=== PATIENT | male | born 1940 | race Two or more races ===

== ENCOUNTER 2019-08-19 16:51 | Inpatient (IN) | payer MEDICARE, OTHER ==
[~2019-08-19] VITALS: Ht 165.1 cm; Wt 71.7 kg
[2019-08-19 18:10] VITALS: BP 160/91
[2019-08-19] MEDS ORDERED: ACETAMINOPHEN 325 MG TABLET PO PRN (19:00)
[2019-08-19] MEDS: HEPARIN SODIUM,PORCINE 5,000 UNITS/ML VIAL SQ SCH (21:13)
[2019-08-19] MEDS: ATORVASTATIN CALCIUM 10 MG TABLET PO SCH (21:13)
[2019-08-19] MEDS: DOCUSATE SODIUM 250 MG CAPSULE PO SCH (21:13)
[2019-08-19] MEDS: SENNA 187 MG TABLET PO SCH (21:13)
[2019-08-19 21:50] VITALS: BP 148/87
[2019-08-19 23:16] VITALS: BP 143/86
[2019-08-20] VITALS: BP 143/86
[2019-08-20 07:10] VITALS: BP 128/72
[2019-08-20 07:18] LABS: BASOPHILS % (AUTO) 0.7 % (0.0-2.0); EOSINOPHILS % (AUTO) 1.6 % (1.0-6.0); HEMATOCRIT 39.7 % (41-53); LYMPHOCYTES # (AUTO) 2.2 K/uL (1.0-4.8); LYMPHOCYTES % (AUTO) 21.7 % (22.0-44.0); MEAN CORPUSCULAR HEMOGLOBIN 32.8 pg (26.0-34.0); MEAN CORPUSCULAR HGB CONC 35.4 G/dL (31.0-37.0); MEAN CORPUSCULAR VOLUME 93 fL (80-100); MONOCYTES % (AUTO) 9.7 % (2.0-9.0); NEUTROPHILS # (AUTO) 6.8 K/uL (1.8-7.7); NEUTROPHILS % (AUTO) 66.3 % (40.0-70.0); PLATELET COUNT (AUTO) 257 K/uL (150-450); RED BLOOD CELL COUNT(AUTO) 4.28 MIL/uL (4.50-5.90); RED CELL DISTRIBUTION WIDTH 12.4 % (11.5-14.5)
[2019-08-20 08:09] LABS: ALBUMIN 3.2 g/dL (3.4-5.0); BILIRUBIN,TOTAL 0.6 mg/dL (0.1-1.0); CALCIUM, TOTAL 8.7 mg/dL (8.8-10.5); CREATININE 1.3 mg/dL (0.60-1.30); POTASSIUM 3.9 mmol/L (3.5-5.1)
[2019-08-20] MEDS: HEPARIN SODIUM,PORCINE 5,000 UNITS/ML VIAL SQ SCH ×2 (08:23→21:33)
[2019-08-20] MEDS: FLUoxetine HCL 20 MG CAPSULE PO SCH (08:23)
[2019-08-20] MEDS: ASPIRIN 325 MG TABLET PO SCH (08:23)
[2019-08-20 08:29] LABS: TOTAL PROTEIN, SERUM 6.5 g/dL (6.4-8.2)
[2019-08-20 16:20] VITALS: BP 148/78
[2019-08-20] MEDS: DOCUSATE SODIUM 250 MG CAPSULE PO SCH (21:32)
[2019-08-20] MEDS: SENNA 187 MG TABLET PO SCH (21:33)
[2019-08-20] MEDS: ATORVASTATIN CALCIUM 10 MG TABLET PO SCH (21:33)
[2019-08-21] VITALS: BP 149/79
[2019-08-21] MEDS: HEPARIN SODIUM,PORCINE 5,000 UNITS/ML VIAL SQ SCH ×2 (09:10→20:18)
[2019-08-21] MEDS: FLUoxetine HCL 20 MG CAPSULE PO SCH (09:10)
[2019-08-21] MEDS: ASPIRIN 325 MG TABLET PO SCH (09:10)
[2019-08-21 10:17] VITALS: BP 127/73
[2019-08-21 15:50] VITALS: BP 140/85
[2019-08-21] MEDS: ATORVASTATIN CALCIUM 10 MG TABLET PO SCH (20:18)
[2019-08-21] MEDS: DOCUSATE SODIUM 250 MG CAPSULE PO SCH (21:00)
[2019-08-21] MEDS: SENNA 187 MG TABLET PO SCH (21:00)
[2019-08-22] VITALS: BP 145/83
[2019-08-22 08:08] VITALS: BP 143/83
[2019-08-22] MEDS: ASPIRIN 325 MG TABLET PO SCH (08:30)
[2019-08-22] MEDS: HEPARIN SODIUM,PORCINE 5,000 UNITS/ML VIAL SQ SCH ×2 (08:30→20:49)
[2019-08-22] MEDS: FLUoxetine HCL 20 MG CAPSULE PO SCH (08:30)
[2019-08-22 15:00] VITALS: BP 154/75
[2019-08-22] MEDS: DOCUSATE SODIUM 250 MG CAPSULE PO SCH (20:48)
[2019-08-22] MEDS: SENNA 187 MG TABLET PO SCH (20:48)
[2019-08-22] MEDS: ATORVASTATIN CALCIUM 10 MG TABLET PO SCH (20:48)
[2019-08-23] VITALS: BP 141/77
[2019-08-23 07:15] VITALS: BP 150/69
[2019-08-23] MEDS: HEPARIN SODIUM,PORCINE 5,000 UNITS/ML VIAL SQ SCH ×2 (08:29→20:41)
[2019-08-23] MEDS: ASPIRIN 325 MG TABLET PO SCH (08:29)
[2019-08-23] MEDS: FLUoxetine HCL 20 MG CAPSULE PO SCH (08:29)
[2019-08-23 15:30] VITALS: BP 183/89
[2019-08-23] MEDS: ATORVASTATIN CALCIUM 10 MG TABLET PO SCH (20:41)
[2019-08-23] MEDS: MELATONIN 3 MG TABLET PO PRN (20:41)
[2019-08-23] MEDS: SENNA 187 MG TABLET PO SCH (20:41)
[2019-08-23] MEDS: DOCUSATE SODIUM 250 MG CAPSULE PO SCH (20:41)
[2019-08-24] VITALS: BP 153/84
[2019-08-24] MEDS: FLUoxetine HCL 20 MG CAPSULE PO SCH (08:13)
[2019-08-24] MEDS: HEPARIN SODIUM,PORCINE 5,000 UNITS/ML VIAL SQ SCH ×2 (08:13→21:03)
[2019-08-24] MEDS: ASPIRIN 325 MG TABLET PO SCH (08:13)
[2019-08-24 08:33] VITALS: BP 134/75
[2019-08-24 16:00] VITALS: BP 145/81
[2019-08-24] MEDS: DEXTRAN 70 0.1%/HYPROMELL 0.3% 0.9 ML OPHTHALMIC SOLUTION [PF] OU SCH (20:59)
[2019-08-24] MEDS: ATORVASTATIN CALCIUM 10 MG TABLET PO SCH (21:01)
[2019-08-24] MEDS: SENNA 187 MG TABLET PO SCH (21:01)
[2019-08-24] MEDS: DOCUSATE SODIUM 250 MG CAPSULE PO SCH (21:01)
[2019-08-25 00:37] VITALS: BP 150/86
[2019-08-25 07:15] VITALS: BP 137/88
[2019-08-25] MEDS: DEXTRAN 70 0.1%/HYPROMELL 0.3% 0.9 ML OPHTHALMIC SOLUTION [PF] OU SCH ×3 (07:59→20:23)
[2019-08-25] MEDS: ASPIRIN 325 MG TABLET PO SCH (07:59)
[2019-08-25] MEDS: HEPARIN SODIUM,PORCINE 5,000 UNITS/ML VIAL SQ SCH ×2 (07:59→20:24)
[2019-08-25] MEDS: FLUoxetine HCL 20 MG CAPSULE PO SCH (07:59)
[2019-08-25 13:10] VITALS: BP 152/82
[2019-08-25] MEDS: AmLODIPine BESYLATE 10 MG TABLET PO SCH (13:29)
[2019-08-25] MEDS: CHOLECALCIFEROL (VIT D3) 5,000 UNITS CAPSULE PO SCH (13:29)
[2019-08-25] MEDS: LISINOPRIL 20 MG TABLET PO SCH (13:30)
[2019-08-25 15:30] VITALS: BP 136/84
[2019-08-25] MEDS: ATORVASTATIN CALCIUM 10 MG TABLET PO SCH (20:23)
[2019-08-25] MEDS: DOCUSATE SODIUM 250 MG CAPSULE PO SCH (20:23)
[2019-08-25] MEDS: SENNA 187 MG TABLET PO SCH (20:24)
[2019-08-25] MEDS ORDERED: INSULIN GLARGINE,HUM.REC.ANLOG 100 UNITS/ML SQ SCH (21:00)
[2019-08-26] VITALS: BP 146/71
[2019-08-26 07:00] VITALS: BP 101/59
[2019-08-26 08:09] VITALS: BP 81/55
[2019-08-26] MEDS: FLUoxetine HCL 20 MG CAPSULE PO SCH (08:12)
[2019-08-26] MEDS: CHOLECALCIFEROL (VIT D3) 5,000 UNITS CAPSULE PO SCH (08:12)
[2019-08-26] MEDS: ASPIRIN 325 MG TABLET PO SCH (08:12)
[2019-08-26] MEDS: HEPARIN SODIUM,PORCINE 5,000 UNITS/ML VIAL SQ SCH ×2 (08:15→20:44)
[2019-08-26] MEDS: DEXTRAN 70 0.1%/HYPROMELL 0.3% 0.9 ML OPHTHALMIC SOLUTION [PF] OU SCH ×3 (08:15→20:44)
[2019-08-26] MEDS: LISINOPRIL 20 MG TABLET PO SCH (08:15)
[2019-08-26] MEDS: AmLODIPine BESYLATE 10 MG TABLET PO SCH (08:15)
[2019-08-26 09:28] VITALS: BP 86/52
[2019-08-26 15:30] VITALS: BP 93/59
[2019-08-26] MEDS: ATORVASTATIN CALCIUM 10 MG TABLET PO SCH (20:44)
[2019-08-26] MEDS: SENNA 187 MG TABLET PO SCH (20:44)
[2019-08-26] MEDS: DOCUSATE SODIUM 250 MG CAPSULE PO SCH (20:44)
[2019-08-26 23:00] VITALS: BP 101/58
[2019-08-27 03:30] VITALS: BP 135/77
[2019-08-27 05:06] VITALS: BP 101/66
[2019-08-27 07:15] VITALS: BP 117/65
[2019-08-27 08:55] VITALS: BP 106/40
[2019-08-27] MEDS: HEPARIN SODIUM,PORCINE 5,000 UNITS/ML VIAL SQ SCH (09:00)
[2019-08-27] MEDS: ASPIRIN 325 MG TABLET PO SCH (09:00)
[2019-08-27] MEDS: AmLODIPine BESYLATE 10 MG TABLET PO SCH (09:00)
[2019-08-27] MEDS: LISINOPRIL 20 MG TABLET PO SCH (09:00)
[2019-08-27] MEDS: DEXTRAN 70 0.1%/HYPROMELL 0.3% 0.9 ML OPHTHALMIC SOLUTION [PF] OU SCH ×3 (09:07→20:18)
[2019-08-27] MEDS: CHOLECALCIFEROL (VIT D3) 5,000 UNITS CAPSULE PO SCH (09:07)
[2019-08-27] MEDS: FLUoxetine HCL 20 MG CAPSULE PO SCH (09:07)
[2019-08-27] MEDS ORDERED: ONDANSETRON HCL 4 MG TABLET PO PRN (09:30)
[2019-08-27] MEDS ORDERED: MAG HYDROX/AL HYDROX/SIMETH 30 ML SUSP UDCUP PO PRN (09:30)
[2019-08-27] MEDS ORDERED: PANTOPRAZOLE SODIUM 40 MG/VIAL IVP SCH (09:45)
[2019-08-27 09:59] LABS: BASOPHILS % (AUTO) 0.2 % (0.0-2.0); EOSINOPHILS % (AUTO) 0.1 % (1.0-6.0); HEMATOCRIT 29.5 % (41-53); LYMPHOCYTES # (AUTO) 1.1 K/uL (1.0-4.8); LYMPHOCYTES % (AUTO) 7.7 % (22.0-44.0); MEAN CORPUSCULAR HEMOGLOBIN 32.1 pg (26.0-34.0); MEAN CORPUSCULAR HGB CONC 34.1 G/dL (31.0-37.0); MEAN CORPUSCULAR VOLUME 94 fL (80-100); MONOCYTES % (AUTO) 6.9 % (2.0-9.0); NEUTROPHILS # (AUTO) 12.7 K/uL (1.8-7.7); NEUTROPHILS % (AUTO) 85.1 % (40.0-70.0); PLATELET COUNT (AUTO) 310 K/uL (150-450); RED BLOOD CELL COUNT(AUTO) 3.13 MIL/uL (4.50-5.90); RED CELL DISTRIBUTION WIDTH 12.8 % (11.5-14.5)
[2019-08-27] MEDS: SODIUM CHLORIDE 0.9% 1,000 ML IV SCH ×2 (10:59→20:17)
[2019-08-27] MEDS ORDERED: SODIUM CHLORIDE 0.9% 0 ML ONE (14:18)
[2019-08-27] MEDS ORDERED: PANTOPRAZOLE SODIUM 40 MG/VIAL IVP ONE (15:00)
[2019-08-27 15:45] VITALS: BP 139/84
[2019-08-27] MEDS: PANTOPRAZOLE SODIUM 80 MG in SODIUM CHLORIDE 0.9% 100 ML IV SCH (16:11)
[2019-08-27] MEDS: 0.9% SODIUM CHLORIDE 10 ML SYRINGE IVP SCH (16:12)
[2019-08-27 17:29] LABS: HEMATOCRIT 27.6 % (41-53); HEMOGLOBIN 9.3 g/dL (13.5-17.5)
[2019-08-27 17:48] LABS: INR 1.1 (0.9-1.1)
[2019-08-27 17:50] LABS: ALBUMIN 3.1 g/dL (3.4-5.0); BILIRUBIN,TOTAL 0.3 mg/dL (0.1-1.0); CALCIUM, TOTAL 8.4 mg/dL (8.8-10.5); CREATININE 1.62 mg/dL (0.60-1.30); POTASSIUM 4.7 mmol/L (3.5-5.1); TOTAL PROTEIN, SERUM 6.1 g/dL (6.4-8.2)
[2019-08-27] MEDS: ATORVASTATIN CALCIUM 10 MG TABLET PO SCH (20:18)
[2019-08-27] MEDS: DOCUSATE SODIUM 250 MG CAPSULE PO SCH (20:18)
[2019-08-27] MEDS: SENNA 187 MG TABLET PO SCH (20:18)
[2019-08-27 23:40] LABS: HEMATOCRIT 26.1 % (41-53); HEMOGLOBIN 9.1 g/dL (13.5-17.5)
[2019-08-27 23:44] VITALS: BP 134/78
[2019-08-27 23:51] LABS: CALCIUM, TOTAL 8.7 mg/dL (8.8-10.5); CREATININE 1.64 mg/dL (0.60-1.30); POTASSIUM 4.4 mmol/L (3.5-5.1)
[2019-08-28] MEDS: 0.9% SODIUM CHLORIDE 10 ML SYRINGE IVP SCH ×3 (02:01→16:38)
[2019-08-28] MEDS: PANTOPRAZOLE SODIUM 80 MG in SODIUM CHLORIDE 0.9% 100 ML IV SCH ×3 (02:02→21:24)
[2019-08-28 06:14] LABS: BASOPHILS % (AUTO) 0.6 % (0.0-2.0); EOSINOPHILS % (AUTO) 0.4 % (1.0-6.0); HEMATOCRIT 23.7 % (41-53); HEMOGLOBIN 8.2 g/dL (13.5-17.5); LYMPHOCYTES # (AUTO) 1.9 K/uL (1.0-4.8); LYMPHOCYTES % (AUTO) 18.7 % (22.0-44.0); MEAN CORPUSCULAR HEMOGLOBIN 32.4 pg (26.0-34.0); MEAN CORPUSCULAR HGB CONC 34.7 G/dL (31.0-37.0); MEAN CORPUSCULAR VOLUME 93 fL (80-100); MONOCYTES # (AUTO) 0.8 K/uL (0.1-1.0); MONOCYTES % (AUTO) 8.1 % (2.0-9.0); NEUTROPHILS # (AUTO) 7.3 K/uL (1.8-7.7); NEUTROPHILS % (AUTO) 72.2 % (40.0-70.0); PLATELET COUNT (AUTO) 266 K/uL (150-450); RED BLOOD CELL COUNT(AUTO) 2.54 MIL/uL (4.50-5.90); RED CELL DISTRIBUTION WIDTH 12.6 % (11.5-14.5)
[2019-08-28 06:33] LABS: ALBUMIN 2.7 g/dL (3.4-5.0); BILIRUBIN,TOTAL 0.3 mg/dL (0.1-1.0); CREATININE 1.44 mg/dL (0.60-1.30); POTASSIUM 4.3 mmol/L (3.5-5.1); TOTAL PROTEIN, SERUM 5.6 g/dL (6.4-8.2)
[2019-08-28] MEDS ORDERED: PANTOPRAZOLE SODIUM 40 MG DR TABLET PO SCH (07:00)
[2019-08-28 07:59] VITALS: BP 125/68
[2019-08-28 08:50] LABS: H. PYLORI ANTIBODY IGG 4.74 (0.00-0.79)
[2019-08-28] MEDS: CHOLECALCIFEROL (VIT D3) 5,000 UNITS CAPSULE PO SCH (09:04)
[2019-08-28] MEDS: FLUoxetine HCL 20 MG CAPSULE PO SCH (09:04)
[2019-08-28] MEDS: DEXTRAN 70 0.1%/HYPROMELL 0.3% 0.9 ML OPHTHALMIC SOLUTION [PF] OU SCH ×3 (09:04→21:25)
[2019-08-28] MEDS: SODIUM CHLORIDE 0.9% 1,000 ML IV SCH ×2 (12:07→16:38)
[2019-08-28 15:00] VITALS: BP 137/57
[2019-08-28] MEDS: DOCUSATE SODIUM 250 MG CAPSULE PO SCH (21:25)
[2019-08-28] MEDS: ATORVASTATIN CALCIUM 10 MG TABLET PO SCH (21:25)
[2019-08-28] MEDS: SENNA 187 MG TABLET PO SCH (21:25)
[2019-08-29] VITALS: BP 140/77
[2019-08-29] MEDS: PANTOPRAZOLE SODIUM 80 MG in SODIUM CHLORIDE 0.9% 100 ML IV SCH (06:57)
[2019-08-29] MEDS: SODIUM CHLORIDE 0.9% 1,000 ML IV SCH ×3 (07:49→20:29)
[2019-08-29] MEDS: 0.9% SODIUM CHLORIDE 10 ML SYRINGE IVP SCH ×3 (07:49→16:41)
[2019-08-29 08:00] VITALS: BP 116/56
[2019-08-29 08:14] LABS: HEMATOCRIT 21.6 % (41-53); HEMOGLOBIN 7.3 g/dL (13.5-17.5)
[2019-08-29] MEDS: DEXTRAN 70 0.1%/HYPROMELL 0.3% 0.9 ML OPHTHALMIC SOLUTION [PF] OU SCH ×3 (09:25→20:28)
[2019-08-29] MEDS: FLUoxetine HCL 20 MG CAPSULE PO SCH (09:25)
[2019-08-29] MEDS: CHOLECALCIFEROL (VIT D3) 5,000 UNITS CAPSULE PO SCH (09:25)
[2019-08-29] MEDS ORDERED: SOD FERRIC GLUC COMPLX/SUCROSE 125 MG in SODIUM CHLORIDE 0.9% 100 ML IV SCH (15:00)
[2019-08-29 16:09] VITALS: BP 139/66
[2019-08-29] MEDS: PANTOPRAZOLE SODIUM 40 MG/VIAL IVP SCH (20:28)
[2019-08-29] MEDS: DOCUSATE SODIUM 250 MG CAPSULE PO SCH (20:29)
[2019-08-29] MEDS: ATORVASTATIN CALCIUM 10 MG TABLET PO SCH (20:29)
[2019-08-29] MEDS: SENNA 187 MG TABLET PO SCH (20:29)
[2019-08-29 21:53] LABS: H. PYLORI ANTIBODY IGM <9.0 units (0.0-8.9)
[2019-08-29 23:05] VITALS: BP 150/67
[2019-08-30] VITALS (12 sets, daily range): BP systolic 127–158; BP diastolic 56–72
[2019-08-30] MEDS: 0.9% SODIUM CHLORIDE 10 ML SYRINGE IVP SCH ×4 (00:32→23:08)
[2019-08-30] MEDS: SODIUM CHLORIDE 0.9% 1,000 ML IV SCH ×3 (06:51→22:29)
[2019-08-30 07:39] LABS: BASOPHILS % (AUTO) 0.3 % (0.0-2.0); EOSINOPHILS % (AUTO) 1.6 % (1.0-6.0); LYMPHOCYTES # (AUTO) 2.1 K/uL (1.0-4.8); LYMPHOCYTES % (AUTO) 22.7 % (22.0-44.0); MEAN CORPUSCULAR HEMOGLOBIN 31.9 pg (26.0-34.0); MEAN CORPUSCULAR HGB CONC 33.6 G/dL (31.0-37.0); MEAN CORPUSCULAR VOLUME 95 fL (80-100); MONOCYTES # (AUTO) 0.7 K/uL (0.1-1.0); MONOCYTES % (AUTO) 8.1 % (2.0-9.0); NEUTROPHILS # (AUTO) 6.1 K/uL (1.8-7.7); NEUTROPHILS % (AUTO) 67.3 % (40.0-70.0); PLATELET COUNT (AUTO) 243 K/uL (150-450); RED BLOOD CELL COUNT(AUTO) 2.15 MIL/uL (4.50-5.90); RED CELL DISTRIBUTION WIDTH 12.3 % (11.5-14.5)
[2019-08-30 07:53] LABS: HEMATOCRIT 20.3 % (41-53); HEMOGLOBIN 6.8 g/dL (13.5-17.5)
[2019-08-30 08:21] LABS: ALANINE AMINOTRANSFERASE 21 U/L (12-78); ALBUMIN 2.5 g/dL (3.4-5.0); ALKALINE PHOSPHATASE 42 U/L (46-116); ANION GAP 6 mmol/L (8-16); ASPARTATE AMINOTRANSFERASE 21 U/L (15-37); BILIRUBIN,TOTAL 0.1 mg/dL (0.1-1.0); CALCIUM, TOTAL 7.8 mg/dL (8.8-10.5); CARBON DIOXIDE 24 mmol/L (22-29); CHLORIDE 108 mmol/L (98-107); CREATININE 1.01 mg/dL (0.60-1.30); GLUCOSE,RANDOM 117 mg/dL (70-110); POTASSIUM 3.5 mmol/L (3.5-5.1); SODIUM SERUM 138 mmol/L (136-145); TOTAL PROTEIN, SERUM 5.1 g/dL (6.4-8.2); UREA NITROGEN, BLOOD 10 mg/dL (7-18)
[2019-08-30 08:24] LABS: GLOMERULAR FILTR. RATE CALC > 60 mL/min (>60)
[2019-08-30] MEDS ORDERED: SODIUM CHLORIDE 0.9% 250 ML IV ONE (08:45)
[2019-08-30] MEDS: PANTOPRAZOLE SODIUM 40 MG/VIAL IVP SCH ×2 (08:53→20:06)
[2019-08-30] MEDS: DEXTRAN 70 0.1%/HYPROMELL 0.3% 0.9 ML OPHTHALMIC SOLUTION [PF] OU SCH ×3 (08:53→20:06)
[2019-08-30] MEDS: CHOLECALCIFEROL (VIT D3) 5,000 UNITS CAPSULE PO SCH (08:53)
[2019-08-30] MEDS: FLUoxetine HCL 20 MG CAPSULE PO SCH (08:53)
[2019-08-30] MEDS: DOCUSATE SODIUM 250 MG CAPSULE PO SCH (20:08)
[2019-08-30] MEDS: ATORVASTATIN CALCIUM 10 MG TABLET PO SCH (20:08)
[2019-08-30] MEDS: SENNA 187 MG TABLET PO SCH (20:08)
[2019-08-31] MEDS: MAGNESIUM HYDROXIDE SUSPENSION 30 ML UDCUP PO PRN (05:23)
[2019-08-31 06:26] LABS: BASOPHILS % (AUTO) 0.6 % (0.0-2.0); EOSINOPHILS % (AUTO) 2.3 % (1.0-6.0); HEMATOCRIT 26.3 % (41-53); HEMOGLOBIN 9.1 g/dL (13.5-17.5); LYMPHOCYTES # (AUTO) 1.9 K/uL (1.0-4.8); MEAN CORPUSCULAR HEMOGLOBIN 31.7 pg (26.0-34.0); MEAN CORPUSCULAR HGB CONC 34.8 G/dL (31.0-37.0); MEAN CORPUSCULAR VOLUME 91 fL (80-100); MONOCYTES # (AUTO) 0.8 K/uL (0.1-1.0); MONOCYTES % (AUTO) 8.3 % (2.0-9.0); NEUTROPHILS # (AUTO) 6.3 K/uL (1.8-7.7); NEUTROPHILS % (AUTO) 67.8 % (40.0-70.0); PLATELET COUNT (AUTO) 295 K/uL (150-450); RED BLOOD CELL COUNT(AUTO) 2.88 MIL/uL (4.50-5.90); RED CELL DISTRIBUTION WIDTH 14.3 % (11.5-14.5)
[2019-08-31 07:12] VITALS: BP 147/76
[2019-08-31] MEDS: PANTOPRAZOLE SODIUM 40 MG/VIAL IVP SCH ×2 (08:02→21:14)
[2019-08-31] MEDS: DEXTRAN 70 0.1%/HYPROMELL 0.3% 0.9 ML OPHTHALMIC SOLUTION [PF] OU SCH ×3 (08:03→21:14)
[2019-08-31] MEDS: FLUoxetine HCL 20 MG CAPSULE PO SCH (08:03)
[2019-08-31] MEDS: CHOLECALCIFEROL (VIT D3) 5,000 UNITS CAPSULE PO SCH (08:03)
[2019-08-31] MEDS: 0.9% SODIUM CHLORIDE 10 ML SYRINGE IVP SCH ×2 (08:04→16:46)
[2019-08-31] MEDS: SODIUM CHLORIDE 0.9% 1,000 ML IV SCH ×2 (10:36→19:29)
[2019-08-31 11:10] VITALS: BP 141/78
[2019-08-31 11:15] VITALS: BP 146/82
[2019-08-31 15:45] VITALS: BP 141/75
[2019-08-31] MEDS: ATORVASTATIN CALCIUM 10 MG TABLET PO SCH (21:14)
[2019-08-31] MEDS: SENNA 187 MG TABLET PO SCH (21:14)
[2019-08-31] MEDS: DOCUSATE SODIUM 250 MG CAPSULE PO SCH (21:15)
[2019-09-01] MEDS: 0.9% SODIUM CHLORIDE 10 ML SYRINGE IVP SCH ×4 (01:16→23:39)
[2019-09-01 01:26] VITALS: BP 141/71
[2019-09-01] MEDS: SODIUM CHLORIDE 0.9% 1,000 ML IV SCH ×2 (05:45→15:08)
[2019-09-01 06:17] LABS: BASOPHILS % (AUTO) 0.3 % (0.0-2.0); EOSINOPHILS % (AUTO) 1.8 % (1.0-6.0); HEMATOCRIT 23.4 % (41-53); HEMOGLOBIN 8.2 g/dL (13.5-17.5); LYMPHOCYTES # (AUTO) 1.8 K/uL (1.0-4.8); LYMPHOCYTES % (AUTO) 22.5 % (22.0-44.0); MEAN CORPUSCULAR HEMOGLOBIN 31.7 pg (26.0-34.0); MEAN CORPUSCULAR HGB CONC 34.9 G/dL (31.0-37.0); MEAN CORPUSCULAR VOLUME 91 fL (80-100); MONOCYTES # (AUTO) 0.8 K/uL (0.1-1.0); MONOCYTES % (AUTO) 9.3 % (2.0-9.0); NEUTROPHILS # (AUTO) 5.3 K/uL (1.8-7.7); NEUTROPHILS % (AUTO) 66.1 % (40.0-70.0); PLATELET COUNT (AUTO) 298 K/uL (150-450); RED BLOOD CELL COUNT(AUTO) 2.57 MIL/uL (4.50-5.90); RED CELL DISTRIBUTION WIDTH 14.5 % (11.5-14.5)
[2019-09-01 08:00] VITALS: BP 121/59
[2019-09-01] MEDS: DEXTRAN 70 0.1%/HYPROMELL 0.3% 0.9 ML OPHTHALMIC SOLUTION [PF] OU SCH ×3 (08:10→21:37)
[2019-09-01] MEDS: CHOLECALCIFEROL (VIT D3) 5,000 UNITS CAPSULE PO SCH (08:10)
[2019-09-01] MEDS: PANTOPRAZOLE SODIUM 40 MG/VIAL IVP SCH ×2 (08:10→21:37)
[2019-09-01] MEDS: FLUoxetine HCL 20 MG CAPSULE PO SCH (08:10)
[2019-09-01 15:05] VITALS: BP 141/82
[2019-09-01] MEDS: ATORVASTATIN CALCIUM 10 MG TABLET PO SCH (21:37)
[2019-09-01] MEDS: DOCUSATE SODIUM 250 MG CAPSULE PO SCH (21:37)
[2019-09-01] MEDS: SENNA 187 MG TABLET PO SCH (21:37)
[2019-09-01] MEDS: MELATONIN 3 MG TABLET PO PRN (21:37)
[2019-09-02] VITALS: BP 131/71
[2019-09-02] MEDS: DEXTRAN 70 0.1%/HYPROMELL 0.3% 0.9 ML OPHTHALMIC SOLUTION [PF] OU SCH ×3 (08:10→21:47)
[2019-09-02] MEDS: 0.9% SODIUM CHLORIDE 10 ML SYRINGE IVP SCH ×3 (08:10→23:20)
[2019-09-02] MEDS: PANTOPRAZOLE SODIUM 40 MG/VIAL IVP SCH (08:10)
[2019-09-02] MEDS: FLUoxetine HCL 20 MG CAPSULE PO SCH (08:10)
[2019-09-02] MEDS: CHOLECALCIFEROL (VIT D3) 5,000 UNITS CAPSULE PO SCH (08:10)
[2019-09-02 08:40] VITALS: BP 132/61
[2019-09-02 15:00] VITALS: BP 136/72
[2019-09-02 16:20] LABS: APPEARANCE,URINE CLOUDY (CLEAR); GLUCOSE, URINE (UA) NEGATIVE (NEGATIVE); KETONES,URINE 15 mg/dL (NEGATIVE); LEUKOCYTE ESTERASE ,URINE MODERATE (NEGATIVE); NITRATE,URINE POSITIVE (NEGATIVE); OCCULT BLOOD,URINE NEGATIVE (NEGATIVE); PROTEIN,URINE NEGATIVE (NEGATIVE)
[2019-09-02 16:22] LABS: BILIRUBIN,URINE PRELIM. POSITIVE (NEGATIVE)
[2019-09-02 16:25] LABS: BACTERIA,URINE Many /HPF (None Seen); RBC,URINE 0-2 /HPF (0-2)
[2019-09-02 16:26] LABS: SQUAMOUS EPITHELIAL CELL,UR Moderate /LPF (None Seen)
[2019-09-02 16:29] LABS: MUCUS,URINE Few LPF (None Seen)
[2019-09-02] MEDS: SENNA 187 MG TABLET PO SCH (21:47)
[2019-09-02] MEDS: PANTOPRAZOLE SODIUM 40 MG DR TABLET PO SCH (21:47)
[2019-09-02] MEDS: ATORVASTATIN CALCIUM 10 MG TABLET PO SCH (21:47)
[2019-09-02] MEDS: DOCUSATE SODIUM 250 MG CAPSULE PO SCH (21:47)
[2019-09-02] MEDS: MELATONIN 3 MG TABLET PO PRN (21:51)
[2019-09-02 23:28] VITALS: BP 131/68
[2019-09-03 07:01] LABS: BASOPHILS % (AUTO) 0.3 % (0.0-2.0); EOSINOPHILS % (AUTO) 2.5 % (1.0-6.0); HEMATOCRIT 23.3 % (41-53); HEMOGLOBIN 8.3 g/dL (13.5-17.5); LYMPHOCYTES # (AUTO) 1.6 K/uL (1.0-4.8); LYMPHOCYTES % (AUTO) 19.1 % (22.0-44.0); MEAN CORPUSCULAR HEMOGLOBIN 33.6 pg (26.0-34.0); MEAN CORPUSCULAR HGB CONC 35.9 G/dL (31.0-37.0); MEAN CORPUSCULAR VOLUME 94 fL (80-100); MONOCYTES # (AUTO) 0.8 K/uL (0.1-1.0); MONOCYTES % (AUTO) 10.1 % (2.0-9.0); NEUTROPHILS # (AUTO) 5.6 K/uL (1.8-7.7); PLATELET COUNT (AUTO) 320 K/uL (150-450); RED BLOOD CELL COUNT(AUTO) 2.48 MIL/uL (4.50-5.90); RED CELL DISTRIBUTION WIDTH 14.7 % (11.5-14.5)
[2019-09-03 08:01] VITALS: BP 123/59
[2019-09-03] MEDS: CHOLECALCIFEROL (VIT D3) 5,000 UNITS CAPSULE PO SCH (09:17)
[2019-09-03] MEDS: FLUoxetine HCL 20 MG CAPSULE PO SCH (09:18)
[2019-09-03] MEDS: PANTOPRAZOLE SODIUM 40 MG DR TABLET PO SCH ×2 (09:18→20:50)
[2019-09-03] MEDS: DEXTRAN 70 0.1%/HYPROMELL 0.3% 0.9 ML OPHTHALMIC SOLUTION [PF] OU SCH ×3 (09:19→21:13)
[2019-09-03] MEDS: 0.9% SODIUM CHLORIDE 10 ML SYRINGE IVP SCH ×2 (09:19→16:30)
[2019-09-03 15:30] VITALS: BP 119/67
[2019-09-03] MEDS: DOCUSATE SODIUM 250 MG CAPSULE PO SCH (20:50)
[2019-09-03] MEDS: MELATONIN 3 MG TABLET PO PRN (20:50)
[2019-09-03] MEDS: ATORVASTATIN CALCIUM 10 MG TABLET PO SCH (20:50)
[2019-09-03] MEDS: SENNA 187 MG TABLET PO SCH (20:50)
[2019-09-03] MEDS ORDERED: SENN8.6T20 PO (23:50)
[2019-09-03] MEDS ORDERED: FLUO-191 PO (23:50)
[2019-09-03] MEDS ORDERED: HYPR15DR23 OU (23:50)
[2019-09-03] MEDS ORDERED: PANT40TA25 PO (23:50)
[2019-09-03] MEDS ORDERED: ATOR10TA84 PO (23:50)
[2019-09-03] MEDS ORDERED: DOCU-342 PO (23:50)
[2019-09-03] MEDS ORDERED: CHOL500062 PO (23:50)
[2019-09-04 00:36] VITALS: BP 111/51
[2019-09-04] MEDS: PANTOPRAZOLE SODIUM 40 MG DR TABLET PO SCH (08:48)
[2019-09-04] MEDS: DEXTRAN 70 0.1%/HYPROMELL 0.3% 0.9 ML OPHTHALMIC SOLUTION [PF] OU SCH ×2 (08:48→16:15)
[2019-09-04] MEDS: FLUoxetine HCL 20 MG CAPSULE PO SCH (08:49)
[2019-09-04] MEDS: CHOLECALCIFEROL (VIT D3) 5,000 UNITS CAPSULE PO SCH (08:49)
[2019-09-04 09:50] LABS: BASOPHILS % (AUTO) 0.4 % (0.0-2.0); EOSINOPHILS % (AUTO) 1.2 % (1.0-6.0); HEMATOCRIT 27.6 % (41-53); HEMOGLOBIN 9.5 g/dL (13.5-17.5); LYMPHOCYTES # (AUTO) 1.5 K/uL (1.0-4.8); LYMPHOCYTES % (AUTO) 14.7 % (22.0-44.0); MEAN CORPUSCULAR HEMOGLOBIN 31.7 pg (26.0-34.0); MEAN CORPUSCULAR HGB CONC 34.4 G/dL (31.0-37.0); MEAN CORPUSCULAR VOLUME 92 fL (80-100); MONOCYTES # (AUTO) 0.9 K/uL (0.1-1.0); MONOCYTES % (AUTO) 8.5 % (2.0-9.0); NEUTROPHILS # (AUTO) 7.8 K/uL (1.8-7.7); NEUTROPHILS % (AUTO) 75.2 % (40.0-70.0); PLATELET COUNT (AUTO) 376 K/uL (150-450); RED CELL DISTRIBUTION WIDTH 14.8 % (11.5-14.5)
[2019-09-04 10:21] VITALS: BP 137/68
[2019-09-04] MEDS ORDERED: SULFAMETHOX/TRIMETH DS 800-160 MG/TABLET PO SCH (13:00)
[2019-09-04] MEDS ORDERED: SENN8.6T20 PO (13:41)
[2019-09-04] MEDS ORDERED: DEXT15DR29 OU (13:43)
[2019-09-04] MEDS ORDERED: SULF1TAB42 PO (13:45)
[2019-09-04 15:30] VITALS: BP 140/69
[2019-09-04] MEDS: MAGNESIUM HYDROXIDE SUSPENSION 30 ML UDCUP PO PRN (16:25)
== END 2019-09-04 19:25 | disposition home or self-care (01) | DRG 56 ==
LOC: 2WR 18:00
PROVIDERS: ADMIT Physical Medicine & Rehabilitation; ATTEND Physical Medicine & Rehabilitation
PROC: 0DJ08ZZ Inspection of Upper Intestinal Tract, Via Natural or Artificial Opening Endoscopic (ICD-10-PCS; 2019-08-27)
PROC: 30233N1 Transfusion of Nonautologous Red Blood Cells into Peripheral Vein, Percutaneous Approach (ICD-10-PCS; principal; 2019-08-30)
DX: I69.354 Hemiplegia and hemiparesis following cerebral infarction affecting left non-dominant side (principal); I63.511 Cerebral infarction due to unspecified occlusion or stenosis of right middle cerebral artery; K25.4 Chronic or unspecified gastric ulcer with hemorrhage; K26.4 Chronic or unspecified duodenal ulcer with hemorrhage; E78.5 Hyperlipidemia, unspecified; F32.9 Major depressive disorder, single episode, unspecified; G47.00 Insomnia, unspecified; I12.9 Hypertensive chronic kidney disease with stage 1 through stage 4 chronic kidney disease, or unspecified chronic kidney disease; N18.3 Chronic kidney disease, stage 3 (moderate); I65.23 Occlusion and stenosis of bilateral carotid arteries; E11.22 Type 2 diabetes mellitus with diabetic chronic kidney disease; D64.9 Anemia, unspecified; I95.9 Hypotension, unspecified; F20.9 Schizophrenia, unspecified; H91.93 Unspecified hearing loss, bilateral; K44.9 Diaphragmatic hernia without obstruction or gangrene; R32 Unspecified urinary incontinence; E55.9 Vitamin D deficiency, unspecified; Z79.899 Other long term (current) drug therapy
CPT/HCPCS: 82271; 85014; 85018; 86677; 86850; 86900; 86901; 86920; 87081; 87086; 92507; 92508; 92523; 97110; 97112; 97116; 97150; 97163; 97166; 97530; 97535; 99366; C9113; J1644; J1815; J2916; J7030; J7050; P9016